=== PATIENT | female | born 1955 | race Caucasian/White ===

== ENCOUNTER → 2017-01-16 | Day surgery (SDC) | payer OTHER ==
[~2017-01-16] VITALS: Ht 162.6 cm; Wt 95.3 kg
[~2017-01-16] MED LIST: ADVAIR DISKUS1 UNIT INH; ASPIR 8181 MG PO; BREO ELLIPTA 21 EACH; FOLIC ACID 1 MG PO; FOLIC ACID1 M1 PO; FUROSEMIDE40 M1 PO; HYDRODIURIL 2525 MG PO; INVOKANA300 M1 PO; KLOR-CON M1010 ME1 PO; LEVEMIR100 UNIT/1 SC; LIPITOR10 M1 PO; METFORMIN HCL1000 M1 PO; METHOTREXATE 22.5 MG PO; METHOTREXATE IM; PLAQUENIL200 MG PO; PREVACID30 M1 PO; SINGULAIR10 M1 PO
--- NOTE | 2017-01-16 10:51 | Operative Report ---
Operative/Inv Procedure Report Surgery Date: 01/16/17 Name of Procedure: Endoscopic sinus surgery with 1. Nasal septal reconstruction 2. Middle meatal antrotomy, bilateral 3. Maxillary sinus cyst removal, right 4. Partial ethmoidectomy with polypoid tissue removal, bilateral 5. Middle turbinate reduction, bilateral 6. Inferior turbinate submucous resection, bilateral Pre-Operative Diagnosis: 1. Deviated nasal septum 2. Chronic sinusitis, ethmoid, maxillary, bilateral 3. Maxillary sinus cyst, right 3. Turbinate hypertrophy inferior and middle, bilateral Post-Operative Diagnosis: Same Estimated Blood Loss: less than 50ml Surgeon/[employer] Facility Operator: MARIANNE EASTON MD Anesthesia: general endotracheal tube Specimens: 1. Nasal septum and inferior turbinates 2. Sinus, ethmoid and maxillary and middle turbinate, left 3. Sinus, ethmoid and middle turbinates, right 4. Maxillary sinus cyst, right Complications: None Operative Indication: Stable on leaving the OR Operative/Procedure Note Note: The patient was brought to the operating room. Placed on the operating room table in supine position. At first timeout was performed identifying the patient, ID numbers and procedure to be performed. Next general oral endotracheal anesthesia was induced. Endotracheal tube was secured with tape over the left corner of the lip. Operating room table was rotated 90 to the left and patient was positioned for septal surgery with head slightly hyperextended and rotated to the right. At first vasoconstriction was carried by application of Afrin spray on cottonoid pledgets. Next nasal septum was injected with 1% lidocaine with 1: 100,000 epinephrine approximately 6 mL was injected on the left and 9 mL on the right. This followed by placement of cotton pledgets saturated with cocaine flakes and Afrin spray. Patient's face was then prepped and draped in routine manner and surgery was performed. A right hemitransfixion incision was placed and anterior mucoperichondrial tunnel was elevated followed by posterior mucoperiosteal tunnel. Bony cartilaginous junction was identified and and mucoperiosteal tunnel was elevated on the contralateral side. And anteriorly there was inferior obstruction from a quadrangular cartilage overlying the prominent maxillary crest. This was removed in a piecemeal manner. Superiorly there was a projection of the quadrangular cartilage junction with the perpendicular plate of the ethmoid. Prominent cartilage and ethmoid bone were removed which relieved the superior obstruction. Posteriorly there was prominent vomerine spurring to the left. This was removed up by dissecting along the vomerine bone as well as making direct incision over the vomerine bone on the left and removal of the remaining residual spur in a piecemeal manner mucoperiosteum was dissected away from the bone prior to removal. At the end of the procedure septum was solved free of obstruction on the right and on the left. An incision was placed into the mucoperiosteum on the right to serve as a drain that she I'll hold Once the septoplasty was completed, prior to closure, left middle turbinate and middle meatus were injected with 3 cc of 1% lidocaine with 1:100,000 epinephrine. This followed by placement of cottonoid pledgets saturated with Afrin and cocaine. Septoplasty incision was closed with 5-0 chromic simple sutures. Followed by a mattress sutures with 5-0 chromic. Please note that the entire septoplasty was carried with 0 scope as well as directed visualization with a headlight. Next endoscopic sinus surgery was carried out, first on the left and then on the right. The surgery was carried with direct visualization with 0 and 30 scopes. At first on the left, middle turbinate was reduced along its inferior border with Gruenwald forceps. Middle meatus was entered and partial ethmoidectomy was carried. The ethmoid air cells were removed with the straight and up turned to Robert-Blakesley forceps. Ethmoid air cells were obstructed with hyperplastic mucosa. There was significant bony hyperostosis. Once ethmoidectomy was completed. Maxillary sinus ostium was explored. Uncinate process was partially removed with Setliff forceps. Curved ball seeker was used to probe for the natural maxillary sinus ostium. The ostium was then dilated with curved suction. Polypoid tissue was removed. Surgery was completed on the left. Next surgery was carried on the right. Again the middle turbinate was reduced along its inferior border with Gruenwald forceps. Then partial ethmoidectomy was carried. Both bone and mucosa were removed. The mucosa was hyperplastic and bone hyperostotic. Once ethmoidectomy was completed maxillary sinus ostium was searched for. Partial uncinectomy was carried with Setliff forceps. Curved ball seeker was used to search for the maxillary ostium. Ostium was dilated with a curved suction. There was an accessory ostium present on the right. The accessory ostium was then used to access the maxillary sinus cyst which was located over the inferior lateral maxillary sinus wall. The cyst was reached with all angle giraffe forceps and removed in a piecemeal manner. Sinus surgery was completed. Next inferior turbinates were then in and outfractured and excised in submucous manner. This was done with 0 scope visualization. Surgery was completed. Nasal packing was applied next. Gelfilm rolled up into a roll was placed into the middle meatus 2 pieces on each side, secured with 2-0 silk which was then taped to the cheeks with Steri-Strips. Nasal fossa was packed with Telfa saturated with Bactroban ointment. Telfa was stitched anteriorly with 2-0 silk to prevent posterior displacement. Surgery was completed. The patient was reawakened, extubated and taken to the recovery room in good condition. There were no complications. Estimated blood was was 30 mL. Findings: 1. Nasal septum- deviated to the right inferior along the maxillary crest and superior along the quadrangular cartilage and perpendicular plate of the ethmoid posterior vomerine bone with spurring on the left, spurring wedging into the middle meatus and obstructing middle meatus 2. Ethmoid sinuses- polypoid tissue 3. Maxillary sinuses- polypoid tissue and thickened secretions 4. Maxillary sinus, right- cyst located over the inferior lateral wall, approximately 2 cm 5. Middle turbinates- paradoxical curve with obstruction of the middle meatus bilateral 6. Inferior Turbinates- hypertrophy with obstruction of the inferior meatus Discharge Disposition: PACU
== END ==
LOC: STS 11-21 07:00
DX: J34.2 Deviated nasal septum (principal); J32.4 Chronic pansinusitis; J34.3 Hypertrophy of nasal turbinates; J34.1 Cyst and mucocele of nose and nasal sinus; J45.909 Unspecified asthma, uncomplicated; E11.40 Type 2 diabetes mellitus with diabetic neuropathy, unspecified; Z79.84 Long term (current) use of oral hypoglycemic drugs; I25.2 Old myocardial infarction; M06.9 Rheumatoid arthritis, unspecified
CPT/HCPCS: 88304; 88305; J0131; J0690; J1100; J2250; J2405